=== PATIENT | male | born 1945 | race Caucasian/White ===

== ENCOUNTER 2016-09-27 13:16 | Day surgery (SDC) | payer MEDICARE, OTHER ==
[~2016-09-27] VITALS: Ht 177.8 cm; Wt 68.0 kg
[~2016-09-27 13:16] MED LIST: ACET-171 PO; Sodium Chloride LOK Flush 10 mL Syringe IV PRN; fentaNYL-PF 50 mCg/mL 2 mL Inj IVPUSH PRN
[2016-09-27 14:43] VITALS: BP 151/71; PULSE 54; RESP 16; O2SAT 100
[2016-09-27] MEDS: 0.9% Sodium Chloride 1,000 ML IV SCH ×2 (14:48→15:28)
--- NOTE | 2016-09-27 15:45 | PCM.ENDCOL ---
Colonoscopy Date of Service: Sep 27, 2016 Physician Ritesh Abrams MD Pre Procedure Diagnosis: Diarrhea which resolved and screening Post Procedure Dx & Findings: Polyp hemorrhoids diverticula possible quiescent colitis Procedure Colonoscopy PROCEDURE IN DETAIL: Prep adequate Withdrawal time 10 minutes After unremarkable rectal examination the Olympus video colonoscope was inserted patient's anal canal and was advanced to cecum. Landmarks were identified including the ileocecal valve and appendiceal orifice. Scope was further advanced to the terminal ileum which showed normal villous structures without any ulcer mass or erosions. Scope was withdrawn systematically. Visualized colonic mucosa showed atrophic blunted folds decreased vasculature scarring noted especially on the right side of the colon. This noted as we further got into the left side of the colon. Random biopsies were done from this area. Few small diverticulosis noted in the sigmoid colon. There was a 1 cm polyp in the rectosigmoid junction which was removed completely with hot snare. In the rectum retroflexion was done which showed hemorrhoids. Anal canal was inspected carefully on the way out and hemorrhoids noted. Impression Polyp x 1. 1 cm. status post complete removal diverticula possible quiescent colitis - he does not have a history of ulcerative colitis or Crohn's. Hemorrhoids Recommendation Repeat colonoscopy 3 years Diverticular diet [facility] with Jenny Rod Presedation Assessment Risks and Benefits Informed consent was obtained from the patient after all risks and benefits including but not limited to drug reaction, infection, pain, bleeding, perforation, as well as alternatives were discussed. Patient monitoring Continuous pulse oximetry, cardiac monitoring, blood pressure monitoring, IV access, and oxygen at 2L per nasal cannula. Periprocedural Fentanyl: Fentanyl 100mcg Incrementally Midazolam: Midazolam 4mg Incrementally Complications There were no periprocedural complications identified. Post Procedure Plan Post Procedure Recommendations 1. Restrict activities today. 2. Resume normal activities in the morning. 3. Resume medications. 4. Patient informed of normal post procedure side effects as bloating, drowsiness, blood streaking in the stool. 5. average risk CRCS. If colon polyps come back as: -Hyperplastic- can repeat colonoscopy in 10 years -Tubular adenoma- repeat colonoscopy in 5 years -Tubulovillous/villous adenoma- repeat colonoscopy in 3 years -If any dysplasia- return to clinic as soon as possible 6. Please don't hesitate to call me with any questions. Ritesh Abrams MD Sep 27, 2016 15:45
[2016-09-27 15:48] VITALS: BP 137/64; PULSE 53; RESP 14; O2SAT 100
[2016-09-27 15:57] VITALS: BP 116/71; PULSE 50; RESP 14; O2SAT 100
--- NOTE | 2016-10-03 16:25 | PATH ---
SURGICAL PATHOLOGY Attending Physician:Ritesh Abrams M.D. CASE STATUS: Signed Out PATIENT NAME: CRISTY CHURCHILL PID: [id number] : 1945 DATE COLLECTED:09/27/2016 00:00 SPECIMEN: 1: Colon, Biopsy 2: Colon, Polyp CLINICAL HISTORY: 1). RANDOM COLON BIOPSY 2). RECTO-SIGMOID POLYP FINAL DIAGNOSIS: 1.RANDOM COLON BIOPSY: -COLONIC MUCOSA WITH NO DIAGNOSTIC ABNORMALITY. -Negative for active, chronic, and microscopic colitis. -Negative for dysplasia and malignancy. -Additional deeper levels examined. 2.RECTOSIGMOID POLYP, BIOPSY: -INFLAMMATORY POLYP. -Negative for dysplasia and malignancy. -No evidence of HSV I, HSV II, and CMV antigens by immunohistochemistry. ICD10 R19.7 GROSS DESCRIPTION: The specimen is received in two formalin filled containers labeled with the patient's name. 1). The specimen is labeled "random colon" and consists of 3 portions of tissue which aggregate to 0.3 x 0.3 x 0.2 CM. The specimen is entirely submitted in cassette 1A. 2). The specimen is labeled "recto-sig polyp" and consists of a 0.5 x 0.5 x 0.4 CM portion of tissue which is entirely submitted in cassette 2A. 09/28/2016DC MICRO DESCRIPTION: 2. An immunohistochemical stain was performed to evaluate for CMV, HSV I, and HSV II antigens. The control stains show appropriate reactivity. This test was developed and its performance characteristics determined by [facility]. It has not been cleared or approved by the U. S. Food and Drug Administration. The FDA has determined that such clearance or approval is not necessary. This test is used for clinical purposes. It should not be regarded as investigational or for research. ICD-9 CODES: CPT CODES: 1: 98658 2: 35643, 80374, 30779 Electronically Signed Out Junaid Pal MD [facility] [address], [place] [address] Technical component performed at [facility], [address], [place], [address]
== END 2016-09-27 23:59 | disposition home or self-care (01) ==
LOC: END 13:16
PROVIDERS: ATTEND Internal Medicine
DX: Z12.11 Encounter for screening for malignant neoplasm of colon (principal); K63.5 Polyp of colon; K57.30 Diverticulosis of large intestine without perforation or abscess without bleeding; K64.8 Other hemorrhoids
CPT/HCPCS: 45380; 45385; 88305; 88341; 88342; 99153; G0500; J2250; J3010; J7030

== ENCOUNTER → 2016-11-06 | Day surgery (SDC) | payer MEDICARE, OTHER ==
[2016-11-06] VITALS (8 sets, daily range): BP systolic 124–152; BP diastolic 63–86; PULSE 58–96; RESP 13–20; O2SAT 97–100
[~2016-11-06] VITALS: Ht 177.8 cm; Wt 69.1 kg
[~2016-11-06] MED LIST changes: +Bupivacaine-MPF 0.25% 30 mL Inj INFILTRATE ONE; +Dexamethasone 4 mg/mL Inj IVPUSH PRN; +Dexamethasone 4 mg/mL Inj ONE; +EPHEDrine Sulfate 50 mg/mL Inj IVPUSH PRN; +EPHEDrine/NS 5 mg/mL 5 mL Syringe ONE; +HYDROmorphone 1 mg/mL Inj IVPUSH PRN; +Ketamine 10 mg/mL 20 mL Inj ONE; +Lactated Ringer's 1,000 ML IV SCH; +Lactated Ringer's 500 ML IV PRN; +MetoCLOpramide 5 mg/mL 2 mL Inj IVPUSH PRN; +OXYC-530 PO; +Ondansetron 2 mg/mL 2 mL Inj IVPUSH PRN; +Ondansetron 2 mg/mL 2 mL Inj ONE; +POLY17PO6 PO; +Phenylephrine 10,000 mCg/mL Inj IVPUSH PRN; +Propofol 10,000 mCg/mL 20 mL Inj ONE; +Remifentanil 1 mg/3 mL Inj ONE; -Sodium Chloride LOK Flush 10 mL Syringe IV PRN; +no home medications
[2016-11-06] MEDS: Lactated Ringer's 1,000 ML IV SCH ×2 (06:59→07:19)
--- NOTE | 2016-11-06 07:10 | PCM.HPANE ---
Patient Data Surgeon Admitting Provider: Attending Provider:Talat Keys MD Primary Care Physician:Thang Scales MD Other Provider:Alize Changingham Anesthesia Reason for Visit Lyphadenopathy Ht/WT & BMI Height (Feet): 5 Height (Inches): 10.00 Weight (Kilograms): 69.130 Body Mass Index 21.00 Allergies Coded Allergies: No Known Drug Allergies (Verified Allergy, Unknown, 11/01/16) Past Anesthesia History Anesthesia History: Denies:: Abnormal Airway, Anesthesia Reactions (colonoscopy - nausea/vomiting ), Difficult Intubation, Fam Anesthesia Reaction, Fam Malignant Hypertherm, Malignant Hyperthermia Diabetes History Hx Diabetes?: No MRSA MRSA: No Medications Hypertension Medication: No Home Meds Incl Beta Andreia: No Reported Medications [no home medications] No Conflict Check 10/18/16 History History of ENT Problems?: No HEENT History: Denies:: Abnormal Airway Cataracts Difficult Intubation Dysphagia Glaucoma Hearing Problem Sinus Problem Denture Type: None Teeth Condition: Within Normal Limits Hx of Heart Problems?: No Cardiovascular History: Positive for:: Thrombophlebitis (HX OF LT THIGH DVT 2002) Denies:: AICD Abdominal Aortic Aneurism Atrial Fibrillation Heart Murmur Hypertension Irregular Heartbeat Pacemaker Peripheral Vascular Hx of Respiratory Problem?: No Respiratory History: Denies:: Asthma COPD Emphysema Oxygen Administration Pneumonia Tuberculosis Use of C-PAP Machine Hx Neurologic Problems?: No Neurological History: Denies:: Alzheimer's Disease CVA Dementia Dizziness Headaches Multiple Sclerosis Parkinson's Disease Seizures Hx of GI Problems?: No Hx of Problems?: No Genitourinary History: Denies:: HX of Hemodialysis (MOD RENAL INSUFFICIENCY) Kidney Stones Urinary Tract Infection Male Hx: Denies:: Prostate Problems Scrotal Mass Testicular Surgery Skin History: Denies:: History Skin Disorders? Pressure Ulcers Hx Musculoskeletal Problems?: Yes Musculoskeletal History: Positive for:: Joint Replacement (right hip (avn) ) Denies:: Back Injury Degenerative Joint Fibromyalgia Musculoskeletal Trauma Osteoarthritis Hx of Psycho/Social Problems?: No Psycho Social History: Denies:: Anxiety Bipolar Disorder Hx Depression Hx Surgeries?: Yes (HIP REPLACEMENT) Hx Any Other Health Problems?: Yes Other History: Positive for:: Cancer (hx lymphoma, lymphadenopathy current admission problem (left)) Denies:: Endocrine Disease Hospitalization Thyroid Disease History Blood Transfusions: Positive for:: Accept Blood Products? Denies:: Blood Transfusions Hx Diabetes: No Hx Alcohol Use: YesAlcoholic Drinks Per Day: one to two on weekend then months apartHx Substance Use: No Smoking Status: Never Smoker Have You Smoked inLast 12 mo: No Stop/Bang Treated for Sleep Apnea?: No Do You Have a CPAP Machine?: No S-Snoring: Do You Snore Loudly: No T-Tired: feel tired, fatigued: No O-Obsered: Observed not breath: No P-Blood Pressure: treated: No B- Body Mass Index > 35 kg/m2: No A- Age over 50: Yes N- Neck Large Circumference: No G- Gender Male: Yes DAYANA Total Score: 2 DAYANA Risk Assessment: Low Risk, <3 Yes Risk Assessment Category Category 1A: Patient has history of documented sleep apnea, and HAS NOT received any narcotic, sedative or anesthesia administration during this stay. Category 1B: Patient has history of documented sleep apnea, and HAS received any narcotic , sedative or anesthesia administration during this stay Category 2: Patient has SUSPECTED Obstructive Sleep Apnea, and HAS received any narcotic , sedative or anesthesia administration during this stay. Category 3: Patient has SUSPECTED Obstructive Sleep Apnea and HAS NOT received narcotic, sedative or anesthesia administration during this stay. Category 4: Outpatient in Procedural Areas with known sleep apnea or who screen positive for High Risk via the STOP/BANG questionnaire. Exam Exam Vital Signs Vital Signs Date Time Temp Pulse Resp B/P Pulse Ox O2 Delivery O2 Flow Rate FiO2 11/06/16 06:56 35.8 58 14 143/65 100 Room Air General Appearance: Alert, Oriented X3, Cooperative, No Acute Distress HEENT/AIRWAY: MP 2 Lungs: Clear to Auscultation, Normal Air Movement Heart: Exam Unremarkable, Regular Rate/Rhythm, No Murmurs/Rubs/Gallops Meds/Labs/Diagnostics Admission Meds Current Medications Lactated Ringer's (Lr) 1,000 ml @ 120 mls/hr Q8H20M IV Last administered on t 06:59; Start 11/06/16 at 05:00; Stop 11/06/16 at 13:19 Plan Impression Patient chart reviewed, patient interviewed and anesthestic plan with risks, benefits, and alternatives discussed, and informed consent obtained. NPO per Anesth. Guidelines: Yes ASA Physical Status: ASA2 Mod Systemic Disease Anesthetic Plan: GA Bene/Risks/Altern/Consents: Yes HP Complete Prior to Induction: Yes Raymundo Yin MD Nov 06, 2016 07:10
--- NOTE | 2016-11-06 08:52 | PCM.DISURG ---
Surgical Discharge Instruction Date of Service Nov 06, 2016 Dates of Hospitalization Date of Hospital Admission Providers Admitting Physician: Primary Care Physician: Thang Scales MD Attending Physician: Talat Keys MD Discharge Diagnosis Discharge Diagnosis Left axillary lymphadenopathy Post Operative diagnosis Left axillary lymphadenopathy Diet Discharge Diet: No restrictions Activity Discharge Activity-General: No restrictions, Elevate extremity (if left arm swollen or uncomfortable), Activity as energy allows, No driving while taking narcotic Dressing and Incisional Care Dressing Care: Remove outer dressing after 24 hrs Hygiene: May shower Follow Up Plan Follow Up Plan We will call you with your pathology results. Mid-level Provider (F9): John Plunkett PA-C Follow-up appointment: Weeks (2-3) Michelle Sawyer MD Nov 06, 2016 08:52
--- NOTE | 2016-11-06 08:55 | PCM.SURGPO ---
Immediate Operative Note Date of Surgery: Nov 06, 2016 Pre Operative Diagnosis Left axillary lymphadenopathy Post Operative Diagnosis Left axillary lymphadenopathy Procedure Left axillary lymph node excisional biopsy Surgeon and Press Reader Surgeon: Talat Keys MD Assistants: Michelle Sawyer MD and Dio Hernandez DO Findings Left axillary lymph nodes Complications There were no periprocedural complications identified. Surgical Specimen Removed: Yes Specimen sent to Pathology: Yes Anesthetic Administered: GA Grafts, Implants: None Output, Estimated Blood Loss: 5 Blood Admin during surgery: No Michelle Sawyer MD Nov 06, 2016 08:55
--- NOTE | 2016-11-06 09:37 | OP ---
[address] [address] OPERATIVE REPORT PATIENT: CRISTY CHURCHILL : 1945 MR#: [id number] ADMIT: 11/06/2016 JOB ID: [id number] DATE OF SURGERY: 11/06/2016 PREOPERATIVE DIAGNOSIS(ES): Lymphadenopathy. POSTOPERATIVE DIAGNOSIS(ES): Lymphadenopathy. PROCEDURE PERFORMED: Excisional biopsy of left axillary lymph node x2. SURGEON: Talat Keys MD. HAND CROCHETER: Michelle Sawyer MD and Dio Hernandez D.O. COMPLICATIONS: None. CONDITION OF THE PATIENT: Stable. INDICATIONS: The patient is a 71-year-old gentleman who was treated with Rituxan and CHOP for eight cycles offer stage IIA follicular lymphoma, presented with a large abdominal mass in 2004. He completed treatment in June 2006. He has been struggling with intermittent diarrhea for a few months now along with weight loss. This prompted Dr. Scales to perform a CT chest, abdomen, and pelvis and he was found to have lymphadenopathy prompting a surgical consultation. After discussing the risks, benefits, and alternatives, he presents today for excisional biopsy of left axillary lymph node. PROCEDURE DETAILS: He was placed in a supine position and underwent smooth induction of general anesthesia. The left axilla was prepped and draped in the usual sterile fashion. Surgical time-out was undertaken using safety checklist and all were in agreement. We began by making a skin incision and entered the axilla over the palpable lymphadenopathy. I then dissected out a 1.5 cm lymph node with a combination of blunt and sharp dissection and controlling the lymphatics with small clips and extracted the specimen and divided the specimen for gross and flow cytometry and sent it off. After that, I palpated an additional almost 2.5 cm node which I also excised with blunt and sharp dissection controlling the lymphatics with clips and then after ensuring hemostasis, closed the incision in layers of 3-0 Vicryl followed by 4-0 Monocryl. A sterile dressing was applied. The patient was recovered from anesthesia and was taken to the recovery room in stable condition. JENISE
--- NOTE | 2016-11-06 10:55 | PCM.ANEP1 ---
Post Anesthesia PACU Phase 1 Assessment Vital Signs Vital Signs Date Time Temp Pulse Resp B/P Pulse Ox O2 Delivery O2 Flow Rate FiO2 11/06/16 10:34 81 15 146/85 98 Room Air 11/06/16 09:15 90 13 144/74 98 Room Air 11/06/16 09:10 35.9 95 16 139/86 97 Room Air 11/06/16 09:05 90 19 152/79 99 Nasal Cannula 2 11/06/16 09:00 89 20 143/78 99 Nasal Cannula 2 11/06/16 08:55 87 14 124/66 100 Nasal Cannula 2 11/06/16 08:52 36.1 96 13 132/63 99 Nasal Cannula 2 11/06/16 06:56 35.8 58 14 143/65 100 Room Air Anesthetic Administered: GA Level of Alertness: Sleepy, easy to arouse FOSTER's with Equal Strength: Yes Pain: No Nausea or Vomiting: No CV Function & Hydration Stable: Yes Airway Device: none Oxygen Delivery: Nasal Cannula Lungs: Clear to Auscultation, Normal Air Movement Dermatome Level: Full Sensation PACU Phase 2 Assessment Complications: No Follow up Care: No Patient Instructions Provided: N/A Raymundo Yin MD Nov 06, 2016 10:54
--- NOTE | 2016-11-09 10:10 | PATH ---
SURGICAL PATHOLOGY Attending Physician:Talat Keys MD CASE STATUS: Signed Out PATIENT NAME: CRISTY CHURCHILL PID: [id number] : 1945 DATE COLLECTED:11/06/2016 00:00 SPECIMEN: Lymph Node, Biopsy CLINICAL HISTORY: LYMPHADENOPATHY 1). LEFT AXILLARY LYMPH NODE FINAL DIAGNOSIS: Left Axillary Lymph Node, Excisional Biopsy: Enlarged lymph node with follicular hyperplasia and fatty infiltration. Negative for an atypical lymphoid infiltrate and lymphoma. No evidence of a metastatic malignancy. ICD10: R59.0 NOTE: The morphologic and immunohistochemical findings support a benign reactive follicular hyperplasia rather than being worrisome for a follicular lymphoma. GROSS DESCRIPTION: The specimen is received in formalin, labeled with the patient's name, sublabeled as left axillary lymph node, and consists of 2 lymph nodes (1.1 x 1.0 x 0.8 cm and 2.7 x 1.6 x 1.3 cm). Section code: (A) one lymph node, serially sectioned; (B-C) one lymph node, serially sectioned. Specimen entirely submitted. 11/07/16 JM MICRO DESCRIPTION: Sections show an enlarged lymph node with a preserved architecture. The cortex contains an increase in lymphoid follicles with reactive-appearing germinal centers. The subcapsular and intranodal sinusoids are patent without obstruction or infiltration. The medulla of the lymph node shows fatty infiltration. No atypical lymphoid infiltrate or features worrisome for lymphoma are identified. There is no evidence of a metastatic malignancy. IMMUNOHISTOCHEMISTRY In order to confirm that the lymphoid follicles are benign reactive follicles rather than possibly being atypical and therefore supportive of follicular lymphoma, immunohistochemistry is performed with the following results: STAINRESULT [id number] staining of lymphoid follicles; rare positive cells in interfollicular zone [id number] staining of lymphoid follicles; rare positive cells in interfollicular zone [id number] within the interfollicular zone BCL-2Negative for overexpression This test was developed and its performance characteristics determined by [employer]. It has not been cleared or approved by the U. S. Food and Drug Administration. The FDA has determined that such clearance or approval is not necessary. This test is used for clinical purposes. It should not be regarded as investigational or for research. ICD-9 CODES: CPT CODES: 1: 87209, 64127, 94636, 00323, 05630 Electronically Signed Out Rufino Smith MD, PhD [facility] [address], [place] [address] Technical component performed at [facility], [address], [place], [address]
== END | disposition home or self-care (01) ==
LOC: SAS 05:48
PROVIDERS: ATTEND Student in an Organized Health Care Education/Training Program
DX: R59.1 Generalized enlarged lymph nodes (principal); R19.7 Diarrhea, unspecified; R63.4 Abnormal weight loss; Z86.718 Personal history of other venous thrombosis and embolism; Z85.72 Personal history of non-Hodgkin lymphomas; Z96.641 Presence of right artificial hip joint; Z68.21 Body mass index [BMI] 21.0-21.9, adult
CPT/HCPCS: 38525; J1100; J2405; J2704; J7120